=== PATIENT | male | born 1955 | race Caucasian/White ===

== ENCOUNTER → 2016-12-29 | Outpatient (CLI) | payer OTHER ==
[~2016-12-29] VITALS: Ht 175.3 cm; Wt 112.2 kg
[~2016-12-29] MED LIST: ALLO300T2 PO; ASPI-232 PO; ATOR80TA PO; CARV6.252 PO; FERR1TAB13 PO; FRS/40 PO; FURO-85 PO; LISI-729 PO; MELO7.5T5 PO; MULT-506 PO; NVLG INJ; OMEG10007 PO; OMEP20TA PO
[2016-12-29 10:10] VITALS: Ht 175.3 cm; Wt 112.2 kg
--- NOTE | 2016-12-29 10:51 | PAT Medication Instructions ---
Service Date Dec 29, 2016. Current Home Medication List Allopurinol (Zyloprim), 300 MG PO QAM Aspirin (Aspir-81), 1 TAB PO QAM Atorvastatin Calcium (Lipitor), 80 MG PO HS Carvedilol (Coreg), 6.25 MG PO QAM Ferrous Sulfate (Kp Ferrous Sulfate), 0.5 TAB PO QAM Fish Oil ([place]-3), 1 CAP PO BID Furosemide (Lasix), 40 MG PO QAM Furosemide (Lasix), 20 MG PO QDL Insulin Aspart (Novolog), 35 UNITS INJ QAM Insulin Aspart (Novolog), 10 UNITS INJ LUNCH Insulin Aspart (Novolog), 10 UNITS INJ DINNER Lisinopril (Prinivil), 5 MG PO QAM Meloxicam (Mobic), 15 MG PO QAM Multivitamin (Multivitamin), 1 TAB PO QAM Omeprazole (Omeprazole), 1 TAB PO QAM Medication Instructions For Your Scheduled Surgery - Hold the following medications 2 weeks prior to surgery: Fish Oil ([place]-3), 1 CAP PO BID - Hold the following medications the morning of surgery: Lisinopril (Prinivil), 5 MG PO QAM Multivitamin (Multivitamin), 1 TAB PO QAM Furosemide (Lasix), 40 MG PO QAM Furosemide (Lasix), 20 MG PO QDL Ferrous Sulfate (Kp Ferrous Sulfate), 0.5 TAB PO QAM Insulin Aspart (Novolog), 35 UNITS INJ QAM Insulin Aspart (Novolog), 10 UNITS INJ LUNCH Meloxicam (Mobic), 15 MG PO QAM (otherwise okay to continue per surgeon) - Take the following medications the morning of surgery with a sip of water OTHERWISE NOTHING TO EAT OR DRINK AFTER MIDNIGHT: Omeprazole (Omeprazole), 1 TAB PO QAM Allopurinol (Zyloprim), 300 MG PO QAM Aspirin (Aspir-81), 1 TAB PO QAM Carvedilol (Coreg), 6.25 MG PO QAM - Take the following medications as scheduled the night before surgery: Atorvastatin Calcium (Lipitor), 80 MG PO HS Insulin Aspart (Novolog), 10 UNITS INJ DINNER If you have any questions please call us at [phone] or [phone] or [phone]
--- NOTE | 2016-12-29 11:19 | DIAGNOSTIC IMAGING REPORT ---
CHEST PREADMISSION(PA/LAT) CLINICAL HISTORY: Preoperative evaluation. COMPARISON STUDY: No previous studies for comparison. FINDINGS: The lung volumes are normal. No pneumothorax or pleural effusion is present. There is no radiographic evidence of pulmonary edema. A dual lead left subclavian pacer/AICD is in place. Moderate cardiomegaly is noted. Mediastinal contours are otherwise normal. No consolidation is identified. IMPRESSION: 1. No acute cardiopulmonary findings. 2. Moderate cardiomegaly. Electronically signed by: Jorge Valero M.D. 12/29/2016 11:17 AM Dictated Date/Time: 12/29/2016 11:15 AM
[2016-12-29 11:58] LABS: BASO % 0.2 %; BASO ABS # 0.02 K/uL (0-0.2); COMPLETE YES; EOS % 3.1 %; HEMATOCRIT 42.3 % (42-52); IG% 0.5 %; LYMPH % 18.6 %; LYMPH ABS # 1.57 K/uL (1.2-3.4); MEAN CORPUSCULAR HEMOGLOBIN 32.1 pg (25-34); MEAN CORPUSCULAR HGB CONC 34.5 g/dl (32-36); MEAN PLATELET VOLUME 11.6 fL (7.4-10.4); MONO % 9.5 %; NEUT % 68.1 %; PLATELET COUNT 127 K/uL (130-400); RED BLOOD COUNT 4.55 M/uL (4.7-6.1); WHITE BLOOD COUNT 8.44 K/uL (4.8-10.8)
[2016-12-29 12:00] LABS: URINE APPEARANCE CLEAR (CLEAR); URINE BILIRUBIN NEG (NEG); URINE COLOR YELLOW; URINE NITRITE NEG (NEG); URINE PH 5.5 (4.5-7.5); URINE SPECIFIC GRAVITY 1.011 (1.000-1.030); UROBILINOGEN NEG (NEG); ZZUR CULT IF INDIC CLEAN CATCH NO
[2016-12-29 12:05] LABS: ESTIMATED AVERAGE GLUCOSE 209 mg/dl; HA1C FLAG Normal (Normal)
[2016-12-29 12:11] LABS: MANUAL MICROSCOPIC REQUIRED? NO; REVIEW REQ? NO
[2016-12-29 12:15] LABS: INR 1.1 (0.9-1.1); PARTIAL THROMBOPLASTIN RATIO 2.2
[2016-12-29 12:36] LABS: BUN/CREATININE RATIO 18.6 (10-20); CALCIUM 9.2 mg/dl (8.5-10.1); CREATININE 1.7 mg/dl (0.60-1.40); POTASSIUM 5.4 mmol/L (3.5-5.1)
== END ==
LOC: C.LAB 08:00 → EDSTATUS 01-18 13:16
DX: Z01.812 Encounter for preprocedural laboratory examination (principal); M16.12 Unilateral primary osteoarthritis, left hip

== ENCOUNTER → 2017-05-28 | Outpatient (CLI) | payer OTHER ==
[~2017-05-28] MED LIST changes: +ASPI1TAB4 PO; +INSDGI SC; +MELO15TA4 PO; -MELO7.5T5 PO; +OXGN
[2017-05-28 12:32] LABS: BASO % 0.3 %; BASO ABS # 0.03 K/uL (0-0.2); EOS % 3.1 %; EOS ABS # 0.28 K/uL (0-0.5); HEMATOCRIT 40.6 % (42-52); HEMOGLOBIN 14.4 g/dL (14.0-18.0); IG# 0.03 K/uL (0.00-0.02); LYMPH % 18.7 %; MEAN CELL VOLUME 92.9 fL (80-100); MEAN CORPUSCULAR HGB CONC 35.5 g/dl (32-36); MEAN PLATELET VOLUME 11.4 fL (7.4-10.4); MONO % 9.6 %; MONO ABS # 0.87 K/uL (0.11-0.59); NEUT ABS # 6.18 K/uL (1.4-6.5); PLATELET COUNT 116 K/uL (130-400); RED CELL DISTRIBUTION WIDTH CV 13.6 % (11.5-14.5); RED CELL DISTRIBUTION WIDTH SD 46.2 fL (36.4-46.3); WHITE BLOOD COUNT 9.09 K/uL (4.8-10.8)
[2017-05-28 12:51] LABS: INR 1.2 (0.9-1.1)
[2017-05-28 12:59] LABS: HEMOGLOBIN A1C 8.3 % (4.5-5.6)
[2017-05-28 13:22] LABS: ALBUMIN 3.8 gm/dl (3.4-5.0); BLOOD UREA NITROGEN 32 mg/dl (7-18); CALCIUM 8.9 mg/dl (8.5-10.1); CARBON DIOXIDE 22 mmol/L (21-32); CREATININE 1.63 mg/dl (0.60-1.40); GLUCOSE 166 mg/dl (70-99); POTASSIUM 4.1 mmol/L (3.5-5.1); SODIUM 138 mmol/L (136-145)
== END ==
LOC: C.LABMFLN 08:31
PROVIDERS: ATTEND Physician Assistant Medical
DX: Z01.812 Encounter for preprocedural laboratory examination (principal)

== ENCOUNTER → 2017-06-07 | Outpatient (CLI) | payer OTHER ==
[~2017-06-07] MED LIST changes: +MELO-84 PO; -MELO15TA4 PO
[2017-06-07 12:43] LABS: INR 1.2 (0.9-1.1)
[2017-06-07 12:50] LABS: PTT PATIENT 59.9 SECONDS (21.0-31.0)
== END | disposition home or self-care (01) ==
LOC: C.LABMFLN 12:04
DX: M16.12 Unilateral primary osteoarthritis, left hip (principal)

== ENCOUNTER 2017-06-21 05:42 | Inpatient (IN) | payer OTHER ==
[2017-05-17 08:01] VITALS: BMI 35.0
--- NOTE | 2017-06-15 09:13 | PAT Medication Instructions ---
Service Date Jun 15, 2017. Current Home Medication List Allopurinol (Zyloprim), 300 MG PO QAM Aspirin (Aspir-81), 81 MG PO QAM Aspirin-Caffeine (Samuel Back & Body Pain Ex), 2 TAB PO DAILY PRN for Pain Atorvastatin (Lipitor), 80 MG PO HS Carvedilol (Coreg), 6.25 MG PO QAM Ferrous Sulfate (Kp Ferrous Sulfate), 0.5 TAB PO QAM Fish Oil ([place]-3), 2 CAP PO BID Furosemide (Lasix), 40 MG PO QAM Furosemide (Lasix), 20 MG PO QDL Home O2 Therapy (Oxygen), 2 LITERS NA PRN PRN for Shortness of Breath Insulin Aspart (Novolog), 30 UNITS INJ QAM Insulin Aspart (Novolog), 10 UNITS INJ LUNCH Insulin Aspart (Novolog), 10 UNITS INJ DINNER Insulin Glargine (Lantus), 35 UNITS SC BID Lisinopril (Prinivil), 2.5 MG PO QAM Meloxicam (Mobic), 15 MG PO QPM Multivitamin (Multivitamin), 1 TAB PO QAM Omeprazole (Omeprazole), 40 MG PO QAM Medication Instructions For Your Scheduled Surgery -Continue as directed: Home O2 Therapy (Oxygen), 2 LITERS NA PRN PRN for Shortness of Breath -Contact your surgeon for instructions for: Meloxicam (Mobic), 15 MG PO QPM Aspirin-Caffeine (Samuel Back & Body Pain Ex), 2 TAB PO DAILY PRN for Pain - Hold the following medications 2 weeks prior to surgery: Fish Oil ([place]-3), 2 CAP PO BID - Hold the following medications the morning of surgery: Ferrous Sulfate (Kp Ferrous Sulfate), 0.5 TAB PO QAM Furosemide (Lasix), 40 MG PO QAM Insulin Aspart (Novolog), 30 UNITS INJ QAM Lisinopril (Prinivil), 2.5 MG PO QAM Multivitamin (Multivitamin), 1 TAB PO QAM - Take the following medications the morning of surgery with a sip of water: Allopurinol (Zyloprim), 300 MG PO QAM Aspirin (Aspir-81), 81 MG PO QAM Carvedilol (Coreg), 6.25 MG PO QAM Omeprazole (Omeprazole), 40 MG PO QAM - Take the following medications as scheduled the night before surgery: Atorvastatin (Lipitor), 80 MG PO HS Furosemide (Lasix), 20 MG PO QDL Insulin Aspart (Novolog), 10 UNITS INJ LUNCH Insulin Aspart (Novolog), 10 UNITS INJ DINNER Insulin Glargine (Lantus), 35 UNITS SC BID - For Insulin Dependent Diabetic patients: Test blood sugar A.M. of surgery. - If BLOOD SUGAR IS GREATER THAN 150, take half of your regular dose of: Insulin Glargine (Lantus), 35 UNITS SC BID (TAKE 17 UNITS) - If BLOOD SUGAR IS LESS THAN 150, do not take any: Insulin Glargine ( Lantus), 35 UNITS SC BID If you have any questions please call us at [phone] or [phone] or [phone]
[2017-06-15 10:38] LABS: BASO % 0.3 %; BASO ABS # 0.02 K/uL (0-0.2); EOS % 3.3 %; EOS ABS # 0.26 K/uL (0-0.5); HEMATOCRIT 40.2 % (42-52); IG# 0.03 K/uL (0.00-0.02); LYMPH ABS # 1.71 K/uL (1.2-3.4); MEAN CELL VOLUME 92.6 fL (80-100); MEAN CORPUSCULAR HEMOGLOBIN 32.3 pg (25-34); MEAN CORPUSCULAR HGB CONC 34.8 g/dl (32-36); MEAN PLATELET VOLUME 11.5 fL (7.4-10.4); MONO % 9.4 %; MONO ABS # 0.73 K/uL (0.11-0.59); NEUT % 64.6 %; NEUT ABS # 5.03 K/uL (1.4-6.5); PLATELET COUNT 116 K/uL (130-400); RED CELL DISTRIBUTION WIDTH CV 13.5 % (11.5-14.5); RED CELL DISTRIBUTION WIDTH SD 45.8 fL (36.4-46.3); WHITE BLOOD COUNT 7.78 K/uL (4.8-10.8)
[2017-06-15 10:44] LABS: ALBUMIN 3.6 gm/dl (3.4-5.0); CREATININE 1.58 mg/dl (0.60-1.40); POTASSIUM 4.4 mmol/L (3.5-5.1)
[2017-06-15 11:02] LABS: INR 1.2 (0.9-1.1)
[2017-06-15 11:08] LABS: PTT PATIENT 57.4 SECONDS (21.0-31.0)
--- NOTE | 2017-06-20 09:13 | HISTORY & PHYSICAL EXAMINATION ---
DATE OF ADMISSION: 06/21/2017 CHIEF COMPLAINT: Left hip pain. HISTORY OF PRESENT ILLNESS: The patient is a 61-year-old gentleman with known severe osteoarthritis about his left hip. He takes meloxicam daily with minimal relief. He has significant pain and disability with activities of daily living. He has pain with prolonged weightbearing and standing activities. He has difficulty with any kneeling, bending, or squatting activities. Due to ongoing pain and disability, he now desires to proceed with left total hip arthroplasty. PAST MEDICAL HISTORY: Coronary artery disease status post MO x2, cardiac dysrhythmia, type 1 diabetes, esophageal reflux, hypertension, hyperlipidemia, and obesity. PAST SURGICAL HISTORY: None. MEDICATIONS: Allopurinol 100 mg daily, aspirin 81 mg daily, Lipitor 80 mg at bedtime, carvedilol 6.25 mg twice daily, ferrous sulfate 325 mg daily, Lasix 40 mg daily, NovoLog insulin 70/30 as directed, lisinopril 2.5 mg daily, meloxicam 15 mg daily, multivitamin daily, omega-3 fatty acid 1000 mg twice daily, and Prilosec 40 mg daily. ALLERGIES: ACTOS. SOCIAL HISTORY AND REVIEW OF SYSTEMS: Noncontributory. PHYSICAL EXAMINATION: GENERAL: Well-nourished and well-developed male who appears his stated age. HEENT: Normocephalic and atraumatic. Extraocular movements intact. Oropharynx is pink and moist. NECK: Supple without adenopathy. LUNGS: Clear to auscultation bilaterally. HEART: Regular rate and rhythm. ABDOMEN: Soft, nontender, nondistended, and obese. EXTREMITIES: The upper extremities are within normal limits. The left hip demonstrates limited range of motion. There is limitation of active and passive internal/external rotation with pain at end range. X-RAYS: X-rays were reviewed. He has severe end-stage osteoarthritis about the left hip with complete loss of the joint space. There are large osteophytes about the acetabulum and femoral head. There is evidence of subchondral sclerosis and cystic changes in the femoral head. ASSESSMENT: Left hip degenerative joint disease. PLAN: Risks versus benefits were discussed. Consent was obtained. We will proceed with left total hip arthroplasty as indicated.
[~2017-06-21] VITALS: Ht 175.3 cm; Wt 110.0 kg
[2017-06-21] VITALS (12 sets, daily range): BP systolic 108–155; BP diastolic 65–95; PULSE 60–93; TEMP 36.3–37.1; O2SAT 88–97; BMI 35.0
[~2017-06-21 05:42] MED LIST changes: +MISSING PHYSICIAN SIGNATURE ON ORDER SCH
[2017-06-21] MEDS ORDERED: CEFAZOLIN 2000MG IV PUSH 15 ML IV SCH (06:00)
[2017-06-21] MEDS ORDERED: LACTATED RINGER'S 1000ML 500 ML IV SCH (06:00)
[2017-06-21] MEDS ORDERED: CeleBREX 200 MG CAP PO SCH ×2 (06:00)
[2017-06-21] MEDS ORDERED: FAMOTIDINE 20 MG TAB PO SCH ×2 (06:00)
[2017-06-21] MEDS ORDERED: LACTATED RINGER'S 1000ML 1,000 ML IV SCH (06:00)
[2017-06-21] MEDS ORDERED: GABAPENTIN 600 MG PO SCH ×2 (06:00)
[2017-06-21] MEDS ORDERED: METOCLOPRAMIDE HCL 10 MG TAB PO SCH ×2 (06:00)
[2017-06-21] MEDS ORDERED: DEXAMETHASONE 4 MG TAB PO SCH ×2 (06:00)
[2017-06-21] MEDS ORDERED: OXYCODONE HCL 10 MG TABCR (OXYCONTIN) PO SCH ×2 (06:00)
[2017-06-21] MEDS ORDERED: TRANEXAMIC ACID INJ 1,000 MG x 2 Bags IV SCH ×2 (06:00)
[2017-06-21] MEDS ORDERED: ROPIVACAINE 5MG/ML 30 ML 150 MG, BUPIVACAINE 0.5% MPF INJ 30 ML, EpINEphrine HCL INJ 0.... INFIL SCH ×16 (06:00)
[2017-06-21] MEDS ORDERED: ACETAMINOPHEN 500 MG TAB PO SCH ×2 (06:00)
[2017-06-21] MEDS ORDERED: BUPIVACAINE 0.5 % 5 MG/1 ML PF 10ML VIAL ONE (06:22)
[2017-06-21] MEDS: TRANEXAMIC ACID INJ 1,000 MG x 2 Bags IV SCH ×4 (06:30→08:03)
[2017-06-21] MEDS ORDERED: MIDAZOLAM HCL 1 MG/ML 2ML VIAL ONE ×2 (07:49)
--- NOTE | 2017-06-21 07:54 | History & Physical Bridge Note ---
H&P Re-Evaluation Bridge Note: I have examined the patient, reviewed the History & Physical and in the interval since the performance of the History & Physical I have noted the following changes of clinical significance: No changes noted
[2017-06-21] MEDS ORDERED: ORTHO JOINT ANESTHETIC ONE (07:55)
[2017-06-21] MEDS ORDERED: BACITRACIN 50000 UNIT VIAL ONE (07:55)
[2017-06-21] MEDS ORDERED: POVIDONE-IODINE OP SOLN 30 ML BTL ONE (07:55)
[2017-06-21] MEDS ORDERED: KETAMINE HCL INJ 50 MG/ML 10 ML VIAL ONE (08:34)
[2017-06-21] MEDS ORDERED: HYDROmorphone INJ 2 MG/ML SYR/VIAL IV PRN (08:45)
[2017-06-21] MEDS ORDERED: ONDANSETRON INJ 2 MG/ML 2 ML VIAL IV PRN (08:45)
[2017-06-21] MEDS ORDERED: PHENYLEPHRINE 100MCG/ML 5ML SYR IV PRN (08:45)
[2017-06-21] MEDS ORDERED: EpHEDrine SULFATE INJ 50 MG/ML AMP IV PRN (08:45)
[2017-06-21] MEDS ORDERED: ATROPINE SULFATE 0.1 MG/ML 5ML SYR IV PRN (08:45)
[2017-06-21] MEDS ORDERED: PROPOFOL IV EMULSION 10 MG/ML 20 ML VIAL IV ONE (09:20)
--- NOTE | 2017-06-21 09:36 | [facility] Post Operative Brief Note ---
Immediate Operative Summary Operative Date Jun 21, 2017. Pre-Operative Diagnosis DEGENERATIVE JOINT DISEASE Post-Operative Diagnosis SAME PREOP Procedure(s) Performed LEFT TOTAL HIP ARTHROPLASTY Surgeon DR. Lesly LINO Equine Internship Surgeon(s) Kg GOMES Estimated Blood Loss 200ml Findings Consistent with Post-Op Diagnosis Specimens LEFT HIP BONE AND TISSUE Anesthesia Type MAC Spinal Regional Complication(s) very dificult dislocation Disposition Disposition: Recovery Room / PACU
[2017-06-21] MEDS ORDERED: TAMSULOSIN HCL 0.4 MG CAP PO PRN (10:15)
[2017-06-21] MEDS ORDERED: CEFAZOLIN IV 2,000 MG in DEXTROSE 5% 50ML 50 ML IV SCH (10:15)
[2017-06-21] MEDS ORDERED: MAGNESIUM HYDROXIDE SUSP 30 ML UDC PO PRN (10:15)
[2017-06-21] MEDS ORDERED: MoRPHine SULFATE 2 MG/ML CARP IV PRN ×2 (10:15→11:30)
[2017-06-21] MEDS ORDERED: ALUMINUM/MAGNESIUM/SIMETH (MAALOX MAX) 30 ML UDC PO PRN (10:15)
[2017-06-21] MEDS ORDERED: ZOLPIDEM TARTRATE 5 MG TAB PO PRN (10:15)
[2017-06-21] MEDS ORDERED: METOCLOPRAMIDE HCL INJ 5 MG/ML 2 ML VIAL IV PRN (10:15)
--- NOTE | 2017-06-21 10:25 | Anesthesiology Progress Note ---
Anesthesia Post Op Note Date & Time Jun 21, 2017 at 10:24 Vital Signs Pain Intensity: 0 Vital Signs Past 12 Hours Date Time Temp Pulse Resp B/P (MAP) Pulse Ox O2 Delivery O2 Flow Rate FiO2 06/21/17 10:20 60 16 107/68 100 Nasal Cannula 2 06/21/17 10:10 60 16 119/66 100 Oxymask 10 06/21/17 10:00 37.1 60 16 97/62 96 Oxymask 10 06/21/17 07:17 36.8 67 20 155/95 94 Room Air Notes Mental Status: alert / awake / arousable, participated in evaluation Pt Amnestic to Procedure: Yes Nausea / Vomiting: adequately controlled Pain: adequately controlled Airway Patency, RR, SpO2: stable & adequate BP & HR: stable & adequate Hydration State: stable & adequate Anesthetic Complications: no major complications apparent
--- NOTE | 2017-06-21 10:47 | OPERATIVE REPORT ---
DATE OF OPERATION: 06/21/2017 PREOPERATIVE DIAGNOSIS: Osteoarthritis, left hip. POSTOPERATIVE DIAGNOSIS: Osteoarthritis, left hip. PROCEDURE: Left Fromberg total hip arthroplasty. SURGEON: Dr. Dobbs. ANTHROPOLOGIST: Jairo Baltazar PA-C. ANESTHESIA: Spinal. COMPLICATIONS: None. IMPLANTS USED: Left acetabular reamer used 54, acetabular shell 54, femoral stem 5, and femoral head -5 x 36 ceramic. OPERATION AND FINDINGS: PROCEDURE: Following induction of adequate spinal anesthesia, the patient was placed in right lateral decubitus position and left Leah-Langenbeck incision was made. Subcutaneous tissue was sharply dissected. Electrocautery used for hemostasis. The fascia was incised throughout the length of the wound and a camacho scissor placed beneath the short external rotators. The pyriformis was tagged with #1 Vicryl. The short external rotators were divided from the posterior aspect of the femur using electrocautery. These were swept posteriorly. A T-capsulotomy incision was made and the hip was dislocated using a combination of flexion, adduction, and internal rotation. Exposure of the femoral neck with old-style Hohmann and a blunt Hohmann was carried out and a femoral rasp was utilized as a guide for making the appropriate level femoral neck cut. This bone fragment was removed and reserved on the back table. Next, attention was turned to the acetabulum where bone hook was used to retract the femur while the offset retractors were placed anterior and posteriorly. A double-angled Hohmann was placed in superior and anterior position exposing the acetabulum nicely. Acetabular labrum as well as posterior capsule elements were removed using a long knife and a long pickup. Fovea centralis was cleared of all soft tissue. Sequential reamings were carried up to a 54 and decision was made to proceed with impaction of a 54 trabecular metal cup. This was impacted and held using a single 35 mm bone screw. The acetabular liner was placed with 15 of elevated posterior wall in the superior and posterior position. Next, attention was turned to the femoral portion of the case where a Bovie and pickup was used to further clear short external rotators from their insertion on the femur. Box osteotome was used to gain access to the femoral canal and the T-handled rasp and a rattail rasp were used to further open and lateral the canal. Sequentially raspings were carried up to a 5, which gave good fit and fill of the proximal femur. A trial reduction was carried out and a 132 degree femoral neck component was chosen as the size to be used. A -5 x 36 mm femoral head was impacted into position, +0 head was utilized. The trial reduction was stable in all degrees of rotation with no [id number] impingement. The hip was dislocated. The trial components were removed and the final femoral stem, neck, and femoral head combination were assembled on the back table and impacted into position. Hip was relocated. Range of motion checked once again successful and the wound was irrigated. The pyriformis repaired to the greater trochanter using #1 Vicryl [id number] suture. A Hemovac drain was placed and the fascia was closed using #1 Vicryl, subcutaneous tissue was closed using 0 Dexon, and skin was closed with domonique. Sterile dressing of Adaptic, 4 x 4's, ABDs, and foam tape was applied. The patient tolerated the procedure well. Due to the complex nature of the procedure, the entire surgery was performed with the operational assistance of Jairo Baltazar PA-C. The ophthalmology assistant, under direct supervision, was involved in the actual performance of all aspects of the surgical procedure including hemostasis, tissue retraction and incision, instrument management, patient positioning, and wound closure. DISPOSITION: Recovery room, stable. I attest to the content of the Intraoperative Record and any orders documented therein. Any exception s are noted below.
[2017-06-21] MEDS ORDERED: MoRPHine SULFATE 10 MG/ML CARP/VIAL IV PRN (11:30)
[2017-06-21] MEDS ORDERED: MoRPHine SULFATE 4 MG/ML 1 ML CARP\\VIAL IV PRN (11:30)
--- NOTE | 2017-06-21 11:31 | DIAGNOSTIC IMAGING REPORT ---
L PELVIS/UNILATERAL HIP 1 VIEW HISTORY: 61 years-old Male IN PACU - A/P PELVIS and LATERAL HIP INCLUDING ALL OF IMPLANT status post placement of a left hip arthroplasty COMPARISON: None available TECHNIQUE: AP view the pelvis with crosstable lateral view of the left hip FINDINGS: No pelvic ring fracture identified. Mild degenerative changes about the right hip. Peripheral vascular disease. Probable phleboliths of the pelvis. Postoperative changes from recent left hip arthroplasty noted with satisfactory alignment of the hardware. No periprosthetic fracture or retained foreign body. Expected postsurgical swelling and deep tissue air about the left hip and proximal left femur with surgical drain in place. IMPRESSION: Left hip arthroplasty without complication identified. The above report was generated using voice recognition software. It may contain grammatical, syntax or spelling errors. Electronically signed by: Kermit Maharaj M.D. 06/21/2017 11:29 AM Dictated Date/Time: 06/21/2017 11:28 AM
--- NOTE | 2017-06-21 11:56 | Medical Consult ---
Consultation Date of Consultation: Jun 21, 2017. Attending Physician: Ángel Dobbs M.D. Reason for Consultation: Medical management . History of Present Illness 61-year-old male followed by Dr. Humphrey at the [facility]. History of coronary artery disease, hypertension, diabetes mellitus type 2, and other problems noted below. Had preoperative pharmacologic nuclear stress test at [facility] performed 01/25/17 demonstrated perfusion defect at rest consistent with scar, no stress-induced ischemia, overall LVEF of 30%. Underwent left hip surgery earlier today with Dr. Dobbs. Doing well postoperatively. No chest pain. No cough or dyspnea. No nausea or vomiting. Postop pain well-controlled. Took 1/2 of his usual dose of Lantus this morning. Postoperative blood sugar 206. . Past Medical/Surgical History Chronic and Resolved Medical Problems: (1) Coronary artery disease Status: Chronic (2) Diabetes mellitus, type 2 Status: Chronic (3) Exertional dyspnea Permanent Comment: chronic JOHNSON; home O2 PRN with exertion Status: Chronic (4) Gout Status: Chronic (5) Hypertension Status: Chronic Surgical Problems: (1) History of placement of internal cardiac defibrillator Status: Chronic (2) Status post coronary artery stent placement Status: Chronic . Family History Sister-diabetes mellitus Brother-heart disease . Social History Smoking Status: Former Smoker Alcohol Use: none Allergies Coded Allergies: Pioglitazone (Verified Allergy, Unknown, SEVERE HEADACHES, 06/21/17) Home Medications Reported Home Medications Medications Dose Route/Sig Max Daily Dose Days Date Category Oxygen Gas 2 Liters NA PRN PRN 05/17/17 Reported Lantus (Insulin Glargine) 100 Unit/Ml Inj 35 Units SC BID 05/17/17 Reported Samuel Back & Body Pain Ex (Aspirin-Caffeine) 1 Tab Tab 2 Tab PO DAILY PRN 05/17/17 Reported Mobic (Meloxicam) 15 Mg Tab 15 Mg PO QPM 05/17/17 Reported Multivitamin (Multivitamins) Tab 1 Tab PO QAM 12/29/16 Reported Aspir-81 (Aspirin) 81 Mg Tab 81 Mg PO QAM 12/29/16 Reported Omeprazole 20 Mg Tab 40 Mg PO QAM 12/29/16 Reported Prinivil (Lisinopril) 5 Mg Tab 2.5 Mg PO QAM 12/29/16 Reported Novolog (Insulin Aspart) 100 Units/Ml Inj 10 Units INJ DINNER 12/29/16 Reported Novolog (Insulin Aspart) 100 Units/Ml Inj 10 Units INJ LUNCH 12/29/16 Reported Novolog (Insulin Aspart) 100 Units/Ml Inj 30 Units INJ QAM 12/29/16 Reported Lasix (Furosemide) 20 Mg Tab 20 Mg PO QDL 12/29/16 Reported Lasix (Furosemide) 40 Mg Tab 40 Mg PO QAM 12/29/16 Reported [place]-3 (Fish Oil) 1 Ea Cap 2 Cap PO BID 12/29/16 Reported Kp Ferrous Sulfate (Ferrous Sulfate) 325 Mg Tab 0.5 Tab PO QAM 12/29/16 Reported Coreg (Carvedilol) 6.25 Mg Tab 6.25 Mg PO QAM 12/29/16 Reported Lipitor (Atorvastatin) 80 Mg Tab 80 Mg PO HS 12/29/16 Reported Zyloprim (Allopurinol) 300 Mg Tab 300 Mg PO QAM 12/29/16 Reported Current Inpatient Medications Current Inpatient Medications Medications (Trade) Dose Ordered Sig/Deuce Route Start Time Stop Time Status Last Admin Dose Admin Cefazolin Sodium 15 ml @ 3.75 mls/ min PREOP IV 06/21/17 06:00 06/21/17 18:00 Acetaminophen (Tylenol Tab) 1,000 mg PREOP PO 06/21/17 06:00 06/21/17 18:00 06/21/17 07:31 1,000 MG Celecoxib (CeleBREX CAP) 200 mg PREOP PO 06/21/17 06:00 06/21/17 18:00 06/21/17 07:29 200 MG Dexamethasone (Decadron Tab) 8 mg PREOP PO 06/21/17 06:00 06/21/17 18:00 06/21/17 07:29 8 MG Famotidine (Pepcid Tab) 20 mg PREOP PO 06/21/17 06:00 06/21/17 18:00 06/21/17 07:30 20 MG Gabapentin (Neurontin Cap) 600 mg PREOP PO 06/21/17 06:00 06/21/17 18:00 06/21/17 07:29 600 MG Metoclopramide HCl (Reglan Tab) 10 mg PREOP PO 06/21/17 06:00 06/21/17 18:00 06/21/17 07:30 10 MG Oxycodone HCl (Oxycontin Tab) 10 mg PREOP PO 06/21/17 06:00 06/21/17 18:00 06/21/17 07:30 10 MG Hydromorphone HCl (Dilaudid Inj) 0.5 mg Q5M PRN IV 06/21/17 08:45 06/21/17 13:45 Ondansetron HCl (Zofran Inj) 4 mg ONE PRN IV 06/21/17 08:45 06/21/17 13:45 Ephedrine Sulfate (EpHEDrine SULFATE INJ) 5 mg Q5M PRN IV 06/21/17 08:45 06/21/17 13:45 Atropine Sulfate (Atropine Sulfate 0.1mg/ml Inj) 0.5 mg Q1M PRN IV 06/21/17 08:45 06/21/17 13:45 Phenylephrine HCl (Juan Pablo-Synephrine 500MCG/5ML Syr) 100 mcg Q5M PRN IV 06/21/17 08:45 06/21/17 13:45 Sodium Chloride 1,000 ml @ 100 mls/hr Q10H IV 06/21/17 11:30 06/22/17 10:06 Ketorolac Tromethamine (Toradol Inj) 30 mg Q6 IV. 06/21/17 12:00 06/22/17 11:59 Oxycodone HCl (Roxicodone Immediate Rel Tab) 1 TABLET FOR PAIN RATING... Q4H PRN PO 06/21/17 10:15 07/05/17 10:14 Acetaminophen (Tylenol Tab) 1,000 mg Q8 PO 06/21/17 14:00 07/21/17 13:59 Magnesium Hydroxide (Milk Of Magnesia Susp) 30 ml Q6H PRN PO 06/21/17 10:15 07/21/17 10:14 Docusate Sodium (coLACE CAP) 100 mg BID PO 06/21/17 21:00 07/21/17 20:59 Diphenhydramine HCl (Benadryl Cap) 25 mg Q8H PRN PO 06/21/17 10:15 07/21/17 10:14 Al Hydrox/Mg Hydrox/Simethicone (Maalox Max Susp) 15 ml Q4H PRN PO 06/21/17 10:15 07/21/17 10:14 Zolpidem Tartrate (Ambien Tab) 5 mg HSZ PRN PO 06/21/17 10:15 07/21/17 10:14 Multivitamins (Multivitamin Tab) 1 tab QAM PO 06/22/17 09:00 07/22/17 08:59 Ondansetron HCl (Zofran Inj) 4 mg Q6H PRN IV 06/21/17 10:15 07/21/17 10:14 Metoclopramide HCl (Reglan Inj) 10 mg Q6H PRN IV 06/21/17 10:15 07/21/17 10:14 Ferrous Gluconate (Ferrous Gluconate Tab) 324 mg TIDM PO 06/21/17 12:30 07/21/17 12:29 Pantoprazole Sodium (Protonix Tab) 40 mg QAM PO 06/22/17 09:00 06/26/17 08:59 Tamsulosin HCl (Flomax Cap) 0.4 mg QAM PRN PO 06/21/17 10:15 07/21/17 10:14 Dexamethasone Sodium Phosphate 10 mg/Syringe 2.5 ml @ 1 mls/min TODAY@0730 IV 06/22/17 07:30 06/22/17 07:33 Aspirin (Ecotrin Tab) 81 mg BID PO 06/21/17 21:00 07/21/17 20:59 Allopurinol (Zyloprim Tab) 300 mg QAM PO 06/22/17 09:00 07/22/17 08:59 Atorvastatin Calcium (Lipitor Tab) 80 mg HS PO 06/21/17 21:00 07/21/17 20:59 Carvedilol (Coreg Tab) 6.25 mg QAM PO 06/22/17 09:00 07/22/17 08:59 Furosemide (Lasix Tab) 20 mg QDL PO 06/21/17 12:30 07/21/17 12:29 Furosemide (Lasix Tab) 40 mg QAM PO 06/22/17 09:00 07/22/17 08:59 Lisinopril (Zestril Tab) 2.5 mg QAM PO 06/22/17 09:00 07/22/17 08:59 Morphine Sulfate (MoRPHine SULFATE INJ) 2 mg Q2HWA PRN IV 06/21/17 11:30 07/05/17 11:29 Morphine Sulfate (MoRPHine SULFATE INJ) 4 mg Q2HWA PRN IV 06/21/17 11:30 07/05/17 11:29 Morphine Sulfate (MoRPHine SULFATE INJ) 6 mg Q2HWA PRN IV 06/21/17 11:30 07/05/17 11:29 Cefazolin Sodium 2000 mg/Syringe 15 ml @ 3.75 mls/ min Q8H IV 06/21/17 16:00 06/22/17 00:03 Review of Systems Constitutional: No fever, No weight loss Respiratory: + dyspnea on exertion (Chronic), No cough Cardiovascular: No chest pain, No edema Abdomen: No nausea, No vomiting, No diarrhea, No GI bleeding Musculoskeletal: + joint pain (Hip pain) Genitourinary - Male: No hematuria, No dysuria Endocrine: + problem reported (Blood sugars well controlled at home), No excessive thirst, No excessive urination Hematologic / Lymphatic: No abnormal bleeding/bruising Physical Exam Date Time Temp Pulse Resp B/P (MAP) Pulse Ox O2 Delivery O2 Flow Rate FiO2 06/21/17 11:46 60 16 119/76 (90) 96 Nasal Cannula 2.0 06/21/17 11:00 36.8 60 16 109/64 96 Nasal Cannula 2 06/21/17 10:50 36.8 60 16 109/63 96 Nasal Cannula 2 06/21/17 10:40 60 16 106/60 96 Nasal Cannula 2 06/21/17 10:30 66 16 109/63 98 Nasal Cannula 2 06/21/17 10:20 60 16 107/68 100 Nasal Cannula 2 06/21/17 10:10 60 16 119/66 100 Oxymask 10 06/21/17 10:00 37.1 60 16 97/62 96 Oxymask 10 06/21/17 07:17 36.8 67 20 155/95 94 Room Air General Appearance: no apparent distress, + obese Head: normocephalic, atraumatic Eyes: normal inspection, PERRL, EOMI, sclerae normal ENT: normal ENT inspection, hearing grossly normal Neck: thyroid normal, trachea midline Respiratory/Chest: lungs clear, no respiratory distress, no accessory muscle use Cardiovascular: regular rate, rhythm, no edema, no gallop, no JVD, no murmur Abdomen/GI: normal bowel sounds, non tender, soft, no organomegaly, no pulsatile mass Extremities/Musculoskelatal: no calf tenderness, + pertinent finding (TEDS and SCDs applied) Skin: normal color, warm/dry Lymphatic: no adenopathy (Cervical) Laboratory Results Last 24 Hours Test 06/21/17 06:54 06/21/17 10:42 06/21/17 11:41 Bedside Glucose 190 mg/dl 206 mg/dl 237 mg/dl Assessment & Plan STATUS POST LEFT TOTAL HIP ARTHROPLASTY Doing well postoperatively. CORONARY ARTERY DISEASE Status post myocardial infarction several years ago with subsequent coronary stenting. Preoperative nuclear stress test negative. Continue aspirin if okay from surgical perspective. Continue carvedilol and statin. ISCHEMIC CARDIOMYOPATHY Status post myocardial infarction with residual LVEF of 30%. Compensated. Continue carvedilol and lisinopril. Furosemide PRN. HYPERTENSION He was stable postoperatively. Continue carvedilol and lisinopril. DIABETES MELLITUS TYPE 2 Diabetes mellitus type 2 managed with Lantus and NovoLog. Patient took 1/2 dose of his Lantus this morning preoperatively. Blood sugar postoperatively this morning 206. Expect fluctuating blood sugars secondary to surgery, anesthesia, preoperative steroids, immobility, variable p.o. intake. Continue Lantus and NovoLog with adjustment necessary. Check hemoglobin A1c. DVT PROPHYLAXIS Per Orthopedics protocol. Thank you for this consultation. We will follow the patient with you during their hospital stay. Dr. Mendieta will be assuming medical management on Sunday. You can reach a member of the [facility] Medicine Team 13/11 via pager @ [phone]. You can reach me via cell @ [phone]. .
[2017-06-21] MEDS: SODIUM CHLORIDE 0.9% 1000ML 1,000 ML IV SCH ×2 (12:09→21:10)
[2017-06-21] MEDS: KETOROLAC TROMETHAMINE 30 MG/ML VIAL IV. SCH ×3 (12:10→23:37)
[2017-06-21] MEDS ORDERED: FUROSEMIDE 20 MG TAB PO SCH (12:30)
[2017-06-21] MEDS ORDERED: GLUCAGON FOR INJ 1 MG VIAL SQ PRN (13:00)
[2017-06-21] MEDS ORDERED: DEXTROSE 50% 50 ML SYR IV PRN (13:00)
[2017-06-21] MEDS ORDERED: GLUCOSE 40% GEL 15 GM TUBE PO PRN (13:00)
[2017-06-21] MEDS ORDERED: GLUCOSE 10 TABS/TUBE PO PRN (13:00)
[2017-06-21] MEDS: FERROUS GLUCONATE 324 MG TAB PO SCH ×2 (13:14→18:04)
[2017-06-21] MEDS: ACETAMINOPHEN 500 MG TAB PO SCH ×2 (13:15→21:54)
[2017-06-21] MEDS: INSULIN ASPART 100 UNITS/ML 3 ML PEN SC SCH ×3 (13:45→21:07)
[2017-06-21] MEDS: ONDANSETRON INJ 2 MG/ML 2 ML VIAL IV PRN (15:31)
[2017-06-21] MEDS: OXYCODONE HCL IR 5 MG TAB (IMMEDIATE RELEASE) PO PRN (15:32)
[2017-06-21] MEDS: CEFAZOLIN IV 2,000 MG in SYRINGE 0 ML IV SCH ×2 (15:32→23:37)
[2017-06-21] MEDS: ATORVASTATIN 40 MG TAB PO SCH (21:04)
[2017-06-21] MEDS: DOCUSATE SODIUM 100 MG CAP PO SCH (21:05)
[2017-06-21] MEDS: ASPIRIN 81 MG ECTAB PO SCH (21:05)
[2017-06-21] MEDS: INSULIN GLARGINE SOLOSTAR 100 UNITS/ML 3 ML PEN SC SCH (21:08)
[2017-06-22 03:23] VITALS: BP 148/85; PULSE 70; TEMP 36.3; O2SAT 94
[2017-06-22] MEDS: ACETAMINOPHEN 500 MG TAB PO SCH ×3 (05:46→21:41)
[2017-06-22] MEDS: KETOROLAC TROMETHAMINE 30 MG/ML VIAL IV. SCH (05:47)
[2017-06-22 07:00] LABS: HEMATOCRIT 35.6 % (42-52); HEMOGLOBIN 12.2 g/dL (14.0-18.0); MEAN CORPUSCULAR HEMOGLOBIN 31.5 pg (25-34); MEAN CORPUSCULAR HGB CONC 34.3 g/dl (32-36); RED CELL DISTRIBUTION WIDTH CV 13.6 % (11.5-14.5); WHITE BLOOD COUNT 20.46 K/uL (4.8-10.8)
[2017-06-22 07:12] LABS: HEMOGLOBIN A1C 8.3 % (4.5-5.6)
[2017-06-22] MEDS: ONDANSETRON INJ 2 MG/ML 2 ML VIAL IV PRN (07:17)
[2017-06-22] MEDS: SODIUM CHLORIDE 0.9% 1000ML 1,000 ML IV SCH (07:17)
[2017-06-22 07:25] LABS: BASO ABS # 0.01 K/uL (0-0.2); LYMPH % 4.2 %; LYMPH ABS # 0.86 K/uL (1.2-3.4); MEAN PLATELET VOLUME 10.6 fL (7.4-10.4); MONO % 7.9 %; MONO ABS # 1.61 K/uL (0.11-0.59); NEUT % 87.4 %; NEUT ABS # 17.88 K/uL (1.4-6.5); PLATELET COUNT 97 K/uL (130-400)
[2017-06-22 07:28] LABS: CALCIUM 8.4 mg/dl (8.5-10.1); CREATININE 1.88 mg/dl (0.60-1.40)
[2017-06-22] MEDS ORDERED: DEXAMETHASONE INJ 10 MG in SYRINGE 0 ML IV SCH (07:30)
--- NOTE | 2017-06-22 07:40 | Orthopedic Progress Note ---
Orthopedic Progress Note Date of Service Jun 22, 2017. Subjective Post OP Day: 1 Reports: feeling well Objective calves soft nontender, N/V intact, dressing C/D/I (Hemovac in place), toes mobile Date Time Temp Pulse Resp B/P (MAP) Pulse Ox O2 Delivery O2 Flow Rate FiO2 06/22/17 03:23 36.3 70 18 148/85 (106) 94 Nasal Cannula 3.0 06/21/17 23:40 CPAP 4.0 06/21/17 23:35 37.1 60 18 134/79 (97) 97 Room Air 06/21/17 19:28 36.6 66 18 136/81 (99) 97 CPAP 4.0 06/21/17 18:17 97 CPAP 4.0 06/21/17 18:16 88 CPAP 06/21/17 18:15 60 16 129/75 (93) 93 Room Air 06/21/17 15:15 Nasal Cannula 2.0 06/21/17 15:09 36.4 61 18 129/78 (95) 96 Room Air 06/21/17 14:49 36.5 64 19 108/65 (79) 96 Nasal Cannula 2.0 06/21/17 13:01 36.5 62 19 118/73 (88) 95 Nasal Cannula 2.0 06/21/17 12:11 36.3 61 16 119/73 (88) 97 Nasal Cannula 2.0 06/21/17 11:46 60 16 119/76 (90) 96 Nasal Cannula 2.0 06/21/17 11:15 36.7 60 16 115/75 (88) 97 Nasal Cannula 2.0 06/21/17 11:15 Nasal Cannula 2.0 06/21/17 11:15 Nasal Cannula 2.0 06/21/17 11:00 36.8 60 16 109/64 96 Nasal Cannula 2 06/21/17 10:50 36.8 60 16 109/63 96 Nasal Cannula 2 06/21/17 10:40 60 16 106/60 96 Nasal Cannula 2 06/21/17 10:30 66 16 109/63 98 Nasal Cannula 2 06/21/17 10:20 60 16 107/68 100 Nasal Cannula 2 06/21/17 10:10 60 16 119/66 100 Oxymask 10 06/21/17 10:00 37.1 60 16 97/62 96 Oxymask 10 Laboratory Results 24 Hours: Test 06/22/17 06:32 White Blood Count 20.46 K/uL Red Blood Count 3.87 M/uL Hemoglobin 12.2 g/dL Hematocrit 35.6 % Mean Corpuscular Volume 92.0 fL Mean Corpuscular Hemoglobin 31.5 pg Mean Corpuscular Hemoglobin Concent 34.3 g/dl Platelet Count 97 K/uL Mean Platelet Volume 10.6 fL Neutrophils (%) (Auto) 87.4 % Lymphocytes (%) (Auto) 4.2 % Monocytes (%) (Auto) 7.9 % Eosinophils (%) (Auto) 0.0 % Basophils (%) (Auto) 0.0 % Neutrophils # (Auto) 17.88 K/uL Lymphocytes # (Auto) 0.86 K/uL Monocytes # (Auto) 1.61 K/uL Eosinophils # (Auto) 0.00 K/uL Basophils # (Auto) 0.01 K/uL Assessment & Plan Assessment: 61 yo male stable POD #1 s/p left JOSE ALFREDO Plan: 1. Med management 2. DVT prophylaxis- ASA, SCDs 3. PT/OT 4. D/C planning- pt interested in [facility]ust[facility]ox/[facility]
--- NOTE | 2017-06-22 07:43 | Discharge Instructions ---
Discharge Instructions Date of Service Jun 22, 2017. Admission Reason for Admission: Left Hip Osteoarthritis Discharge Discharge Diagnosis / Problem: Left hip arthritis Discharge Goals Goal(s): Decrease discomfort, Improve function Activity Recommendations Activity Limitations: as noted below Weightbearing Status: Left weightbearing (as tolerated) . Instructions / Follow-Up Instructions / Follow-Up ACTIVITY RECOMMENDATIONS: SELF CARE INSTRUCTIONS AFTER TOTAL HIP REPLACEMENT Until the incision and soft tissues around your hip have healed, there is a possibility that the hip prosthesis could dislocate. A. Observe the following precautions to prevent dislocation: 1. Don't bend your hip greater than 90 degrees. 2. Avoid crossing your legs or ankles while standing or lying. 3. Sit with your feet placed 6 inches apart. 4. When sitting, keep your knees below your hips. Sit on a firm surface, avoid deep, soft chairs and couches. Use an elevated toilet seat in the bathroom. 5. Don't bend over at the waist. Use a long handled shoehorn and a sock aid to help you put on your shoes and socks. A streetcar repairer helper can help you pickle sorter objects that are too high or too low to reach. 6. Keep car riding to a minimum for at least one month after surgery. B. Your balance may be shaky for a while. Use crutches or a walker until directed by your doctor. C. Use hand rails when walking on stairs. D. Wear low heeled shoes with non-slip soles. E. Be sure that your floors are free of things that could trip you - throw rugs , electrical cords, small objects. Avoid wet and waxed floors, especially with crutches and canes. F. Try to walk several times a day with rest periods between. G. Continue with all the exercises taught to you in the hospital. Again, make walking a part of your daily routine. SPECIAL CARE INSTRUCTIONS: VERY IMPORTANT TO READ AND REVIEW A. You may still be at risk for phlebitis and blood clots. 1. Wear surgical stockings (EFREM hose) for 2 weeks after surgery to improve circulation and reduce swelling. 2. Take Aspirin 81mg twice daily for 4 weeks or as directed by your doctor. This is your blood thinner. 3. High risk patients may be prescribed a stronger blood thinner if necessary. 4. If you are on Coumadin normally, your family doctor/labor contract analyst should monitor your blood work. Expect a phone call the day of or the day after bloodwork is drawn to adjust your dosage. B. You must take antibiotics before having dental work, bladder, bowel and other surgery. Your doctor will provide you with a permanent card to carry describing precautions. C. Call [facility] if you have a fever, redness or swelling around the incision, cloudy drainage from incision, or sudden increase in pain in your hip, not relieved by your regular pain medication. D. Please call the office at if you have any concerns or questions about your operation or recovery. * YOU MAY SHOWER, NO TUB BATHS UNTIL CLEARED BY YOUR DOCTOR. * WEAR EFREM HOSE 20 HOURS PER DAY FOR 2 WEEKS. * YOU SHOULD USE A WALKER OR CRUTCHES FOR 2-4 WEEKS. THIS WILL HELP PREVENT STRAIN ON YOUR HIP MUSCLE AND ALLOW IT TO HEAL PROPERLY. YOU MAY WEAN TO A CANE TOLERATED. * MOST PATIENTS WILL HAVE HOME NURSING FOR THERAPY. IF YOU DECIDE TO DO OUTPATIENT PHYSICAL THERAPY, PLEASE SCHEDULE THIS 3 TIMES PER WEEK. Silverlon- This is a large adhesive bandage that contains silver ions. This helps your incision heal by fighting off bacteria and protecting it from the outside environment. You are permitted to shower with this dressing. This will remain on your incision for 7 days and then should be removed. Some visible blood or drainage through the dressing window is normal. If there is significant drainage or leaking noted before the 7 days notify your doctor's office immediately. Once removed, keep incision clean and dry. If there is any drainage or redness noted, please call your surgeon. Maintain Zipline closure when removing Silverlon. FOLLOW UP VISIT: If appointment is not already scheduled: Please call [facility] to make a follow-up appointment for 2 weeks after your surgery at . Current Hospital Diet Patient's current hospital diet: Diabetes Type 2 Diet Discharge Diet Recommended Diet: Diabetes Type 2 Diet Procedures Procedures Performed: LEFT TOTAL HIP ARTHROPLASTY Pending Studies Studies pending at discharge: no Laboratory Results Hemoglobin A1c Test 06/22/17 06:32 Range/Units Estimated Average Glucose 192 mg/dl Hemoglobin A1c 8.3 H 4.5-5.6 % Medical Emergencies . Who to Call and When: Medical Emergencies: If at any time you feel your situation is an emergency, please call 911 immediately. . Non-Emergent Contact Non-Emergency issues call your: Surgeon Call Non-Emergent contact if: temperature is above 101.5, your pain is not controlled, wound has increased drainage, wound has increased redness . "Provider Documentation" section prepared by Jairo Baltazar PA-C. . [place] Drug Monitoring Program Search Results: patient reviewed within database, no issues identified
[2017-06-22 07:59] VITALS: BP 124/76; PULSE 60; TEMP 36.2; O2SAT 95
--- NOTE | 2017-06-22 08:22 | Anesthesiology Progress Note ---
Anesthesia Post Op Note Date & Time Jun 22, 2017 at 08:22 Vital Signs Pain Intensity: 0.0 Vital Signs Past 12 Hours Date Time Temp Pulse Resp B/P (MAP) Pulse Ox O2 Delivery O2 Flow Rate FiO2 06/22/17 07:59 36.2 60 18 124/76 (92) 95 Room Air 06/22/17 03:23 36.3 70 18 148/85 (106) 94 Nasal Cannula 3.0 06/21/17 23:40 CPAP 4.0 06/21/17 23:35 37.1 60 18 134/79 (97) 97 Room Air Notes Mental Status: alert / awake / arousable, participated in evaluation Pt Amnestic to Procedure: Yes Nausea / Vomiting: adequately controlled Pain: adequately controlled Airway Patency, RR, SpO2: stable & adequate BP & HR: stable & adequate Hydration State: stable & adequate Neuraxial Anesthesia: sensory block resolved Anesthetic Complications: no major complications apparent
[2017-06-22] MEDS: FERROUS GLUCONATE 324 MG TAB PO SCH ×3 (08:37→18:04)
[2017-06-22] MEDS: DOCUSATE SODIUM 100 MG CAP PO SCH ×2 (08:38→20:11)
[2017-06-22] MEDS: CARVEDILOL 6.25 MG TAB PO SCH (08:38)
[2017-06-22] MEDS: ASPIRIN 81 MG ECTAB PO SCH ×2 (08:39→20:11)
[2017-06-22] MEDS: PANTOprazole SOD 40 MG TAB PO SCH (08:41)
[2017-06-22] MEDS: MULTIVITAMIN TAB PO SCH (08:41)
[2017-06-22] MEDS: ALLOPURINOL 300 MG TAB PO SCH (08:42)
[2017-06-22] MEDS: OXYCODONE HCL IR 5 MG TAB (IMMEDIATE RELEASE) PO PRN (08:47)
[2017-06-22] MEDS ORDERED: FUROSEMIDE 40 MG TAB PO SCH (09:00)
[2017-06-22] MEDS ORDERED: LISINOPRIL 2.5 MG TAB PO SCH (09:00)
[2017-06-22] MEDS: INSULIN ASPART 100 UNITS/ML 3 ML PEN SC SCH ×4 (09:02→21:39)
[2017-06-22] MEDS: INSULIN GLARGINE SOLOSTAR 100 UNITS/ML 3 ML PEN SC SCH ×2 (09:03→21:37)
[2017-06-22 10:31] VITALS: O2SAT 95
[2017-06-22 12:01] VITALS: BP 134/84; PULSE 81; TEMP 36.9; O2SAT 90
[2017-06-22 15:17] VITALS: Ht 175.3 cm; Wt 110.0 kg
[2017-06-22 15:37] VITALS: BP 160/88; PULSE 84; TEMP 36.7; O2SAT 91
[2017-06-22] MEDS ORDERED: HydrALAZINE HCL 20 MG/ML VIAL IV. PRN (18:30)
--- NOTE | 2017-06-22 18:36 | Progress Note ---
Medicine Progress Note Date & Time of Visit: Jun 22, 2017 at 18:23. Subjective Pt was seen and examined Sitting in chair comfortable with no distress Pt said that he feels fine Denies any chest pain, palpitation and SOB Objective Last 8 Hrs Date Time Temp Pulse Resp B/P (MAP) Pulse Ox O2 Delivery O2 Flow Rate FiO2 06/22/17 15:37 36.7 84 18 160/88 (112) 91 Room Air 06/22/17 12:01 36.9 81 18 134/84 (101) 90 Room Air 06/22/17 10:31 95 Room Air Physical Exam: General- No acute distress Head- atraumatic Eyes- PERRL, EOMI ENT- oropharynx clear Neck- supple, no JVD Lungs- clear to auscultation Heart- regular rhythm Abdomen- normal bowel sounds, soft Extremities- no calf tenderness Neuro- alert, oriented x 3; PERRL, EOMI Skin- warm & dry Laboratory Results: Last 24 Hours Test 06/21/17 20:26 06/22/17 06:32 06/22/17 07:47 06/22/17 11:53 Bedside Glucose 248 mg/dl 196 mg/dl 263 mg/dl White Blood Count 20.46 K/uL Red Blood Count 3.87 M/uL Hemoglobin 12.2 g/dL Hematocrit 35.6 % Mean Corpuscular Volume 92.0 fL Mean Corpuscular Hemoglobin 31.5 pg Mean Corpuscular Hemoglobin Concent 34.3 g/dl Platelet Count 97 K/uL Mean Platelet Volume 10.6 fL Neutrophils (%) (Auto) 87.4 % Lymphocytes (%) (Auto) 4.2 % Monocytes (%) (Auto) 7.9 % Eosinophils (%) (Auto) 0.0 % Basophils (%) (Auto) 0.0 % Neutrophils # (Auto) 17.88 K/uL Lymphocytes # (Auto) 0.86 K/uL Monocytes # (Auto) 1.61 K/uL Eosinophils # (Auto) 0.00 K/uL Basophils # (Auto) 0.01 K/uL RDW Standard Deviation 45.0 fL RDW Coefficient of Variation 13.6 % Immature Granulocyte % (Auto) 0.5 % Immature Granulocyte # (Auto) 0.10 K/uL Platelet Estimate DECREASED Sodium Level 134 mmol/L Potassium Level 5.0 mmol/L Chloride Level 103 mmol/L Carbon Dioxide Level 24 mmol/L Anion Gap 7.0 mmol/L Blood Urea Nitrogen 37 mg/dl Creatinine 1.88 mg/dl Est Creatinine Clear Calc Drug Dose 49.2 ml/min Estimated GFR () 43.1 Estimated GFR (Non- 37.2 BUN/Creatinine Ratio 19.9 Random Glucose 208 mg/dl Estimated Average Glucose 192 mg/dl Hemoglobin A1c 8.3 % Calcium Level 8.4 mg/dl Test 06/22/17 17:33 Bedside Glucose 241 mg/dl Assessment & Plan STATUS POST LEFT TOTAL HIP ARTHROPLASTY Day#1 post-op No post-op complication Pain control Incentive spirometry Continue monitor H/H CORONARY ARTERY DISEASE Status post myocardial infarction several years ago with subsequent coronary stenting. Preoperative nuclear stress test negative. Continue carvedilol, aspirin and statin. Asymptomatic ROBERTA on CKD Creatine 1.88 Hold Lisinopril and furosemide Monitor BMP ISCHEMIC CARDIOMYOPATHY Status post myocardial infarction with residual LVEF of 30%. No signs of volume overload Continue carvedilol Hold Furosemide and lisinopril due to elevate creatine HYPERTENSION BP elevated Continue carvedilol Hold lisinopril for now, will resume once creatine improves Starting on hydralazine IV prn DIABETES MELLITUS TYPE 2 Recent Hba1c 8.6 Continue lantus Monitor BS DVT PROPHYLAXIS Per Orthopedics protocol. CODE STATUS FULL CODE Current Inpatient Medications: Current Inpatient Medications Medications (Trade) Dose Ordered Sig/Educe Route Start Time Stop Time Status Last Admin Dose Admin Oxycodone HCl (Roxicodone Immediate Rel Tab) 1 TABLET FOR PAIN RATING... Q4H PRN PO 06/21/17 10:15 07/05/17 10:14 06/22/17 08:47 10 MG Acetaminophen (Tylenol Tab) 1,000 mg Q8 PO 06/21/17 14:00 07/21/17 13:59 06/22/17 13:35 1,000 MG Magnesium Hydroxide (Milk Of Magnesia Susp) 30 ml Q6H PRN PO 06/21/17 10:15 07/21/17 10:14 Docusate Sodium (coLACE CAP) 100 mg BID PO 06/21/17 21:00 07/21/17 20:59 06/22/17 08:38 100 MG Diphenhydramine HCl (Benadryl Cap) 25 mg Q8H PRN PO 3/1/18 10:15 07/21/17 10:14 Al Hydrox/Mg Hydrox/Simethicone (Maalox Max Susp) 15 ml Q4H PRN PO 06/21/17 10:15 07/21/17 10:14 Zolpidem Tartrate (Ambien Tab) 5 mg HSZ PRN PO 06/21/17 10:15 07/21/17 10:14 Multivitamins (Multivitamin Tab) 1 tab QAM PO 06/22/17 09:00 07/22/17 08:59 06/22/17 08:41 1 TAB Ondansetron HCl (Zofran Inj) 4 mg Q6H PRN IV 06/21/17 10:15 07/21/17 10:14 06/22/17 07:17 4 MG Metoclopramide HCl (Reglan Inj) 10 mg Q6H PRN IV 06/21/17 10:15 07/21/17 10:14 06/21/17 18:10 10 MG Ferrous Gluconate (Ferrous Gluconate Tab) 324 mg TIDM PO 06/21/17 12:30 07/21/17 12:29 06/22/17 18:04 324 MG Pantoprazole Sodium (Protonix Tab) 40 mg QAM PO 06/22/17 09:00 06/26/17 08:59 06/22/17 08:41 40 MG Tamsulosin HCl (Flomax Cap) 0.4 mg QAM PRN PO 06/21/17 10:15 07/21/17 10:14 Aspirin (Ecotrin Tab) 81 mg BID PO 06/21/17 21:00 07/21/17 20:59 06/22/17 08:39 81 MG Allopurinol (Zyloprim Tab) 300 mg QAM PO 06/22/17 09:00 07/22/17 08:59 06/22/17 08:42 300 MG Atorvastatin Calcium (Lipitor Tab) 80 mg HS PO 06/21/17 21:00 07/21/17 20:59 06/21/17 21:04 80 MG Carvedilol (Coreg Tab) 6.25 mg QAM PO 06/22/17 09:00 07/22/17 08:59 06/22/17 08:38 6.25 MG Furosemide (Lasix Tab) 20 mg QDL PO 3/1/18 12:30 07/21/17 12:29 Future Hold 06/21/17 13:15 20 MG Furosemide (Lasix Tab) 40 mg QAM PO 06/22/17 09:00 07/22/17 08:59 Future Hold 06/22/17 08:40 40 MG Lisinopril (Zestril Tab) 2.5 mg QAM PO 06/22/17 09:00 07/22/17 08:59 Future Hold 06/22/17 08:42 2.5 MG Morphine Sulfate (MoRPHine SULFATE INJ) 2 mg Q2HWA PRN IV 06/21/17 11:30 07/05/17 11:29 Morphine Sulfate (MoRPHine SULFATE INJ) 4 mg Q2HWA PRN IV 06/21/17 11:30 07/05/17 11:29 Morphine Sulfate (MoRPHine SULFATE INJ) 6 mg Q2HWA PRN IV 06/21/17 11:30 07/05/17 11:29 Insulin Aspart (novoLOG ASPART) SLIDING SCALE G... ACHS SC 06/21/17 12:00 07/21/17 11:59 06/22/17 18:07 15 UNITS Insulin Glargine (Lantus Solostar Pen) BSG Lantus SQ <... BID SC 06/21/17 21:00 07/21/17 20:59 06/22/17 09:03 40 UNITS Glucose (Glucose 40% Gel) 15-30 GRAMS 15 GRAMS... UD PRN PO 06/21/17 13:00 07/21/17 12:59 Glucose (Glucose Chew Tab) 4-8 Tablets 4 Tabl... UD PRN PO 06/21/17 13:00 07/21/17 12:59 Dextrose (Dextrose 50% 50ML Syringe) 25-50ML OF 50% DW IV FOR... UD PRN IV 06/21/17 13:00 07/21/17 12:59 Glucagon (Glucagon Inj) 1 mg UD PRN SQ 06/21/17 13:00 07/21/17 12:59
[2017-06-22] MEDS: ATORVASTATIN 40 MG TAB PO SCH (20:11)
[2017-06-22 23:00] VITALS: BP 125/76; PULSE 69; TEMP 36.7; O2SAT 97
[2017-06-23] MEDS: ACETAMINOPHEN 500 MG TAB PO SCH (06:16)
[2017-06-23 06:33] VITALS: BP 135/82; PULSE 71; TEMP 36.8; O2SAT 94
[2017-06-23] MEDS: CARVEDILOL 6.25 MG TAB PO SCH (07:46)
[2017-06-23] MEDS: PANTOprazole SOD 40 MG TAB PO SCH (07:46)
[2017-06-23] MEDS: ASPIRIN 81 MG ECTAB PO SCH (07:46)
[2017-06-23] MEDS: ALLOPURINOL 300 MG TAB PO SCH (07:46)
[2017-06-23] MEDS: MULTIVITAMIN TAB PO SCH (07:46)
[2017-06-23] MEDS: DOCUSATE SODIUM 100 MG CAP PO SCH (07:46)
[2017-06-23] MEDS: FERROUS GLUCONATE 324 MG TAB PO SCH ×2 (07:46→11:27)
[2017-06-23] MEDS: INSULIN ASPART 100 UNITS/ML 3 ML PEN SC SCH ×2 (07:48→11:28)
[2017-06-23] MEDS: INSULIN GLARGINE SOLOSTAR 100 UNITS/ML 3 ML PEN SC SCH (07:49)
[2017-06-23 07:52] VITALS: BP 135/82; PULSE 71; TEMP 36.8; O2SAT 94
--- NOTE | 2017-06-23 07:53 | Orthopedic Progress Note ---
Orthopedic Progress Note Date of Service Jun 23, 2017. Subjective Post OP Day: 2 Reports: feeling well, pain controlled w PO medications, Denies: complaints, chest pain, SOB, nausea / vomiting, light headedness, calf pain Objective calves soft nontender, N/V intact, hip located, capillary refill less than 2 sec., dressing C/D/I, A&O x3, toes mobile Date Time Temp Pulse Resp B/P (MAP) Pulse Ox O2 Delivery O2 Flow Rate FiO2 06/23/17 06:33 36.8 71 18 135/82 (99) 94 Room Air 06/22/17 23:00 36.7 69 16 125/76 (92) 97 CPAP 3.0 06/22/17 20:20 Room Air CPAP 06/22/17 15:37 36.7 84 18 160/88 (112) 91 Room Air 06/22/17 12:01 36.9 81 18 134/84 (101) 90 Room Air 06/22/17 10:31 95 Room Air 06/22/17 08:32 Room Air 06/22/17 07:59 36.2 60 18 124/76 (92) 95 Room Air Assessment & Plan Assessment: 61 yo male stable POD #2 s/p left JOSE ALFREDO Plan: 1. Med management 2. DVT prophylaxis- ASA, SCDs 3. PT/OT 4. D/C planning- pt interested in [place]
[2017-06-23] MEDS ORDERED: ACET-24 PO ×2 (07:57→10:45)
[2017-06-23] MEDS ORDERED: ONDA8TAB6 PO (07:57)
[2017-06-23] MEDS ORDERED: RXC5 PO (07:57)
[2017-06-23] MEDS ORDERED: CLB200 PO ×2 (07:57→10:45)
[2017-06-23] MEDS ORDERED: ASPEC81 PO ×2 (07:57→10:45)
[2017-06-23 08:09] LABS: HEMATOCRIT 34.1 % (42-52); HEMOGLOBIN 11.9 g/dL (14.0-18.0); MEAN CELL VOLUME 91.2 fL (80-100); MEAN CORPUSCULAR HEMOGLOBIN 31.8 pg (25-34); MEAN CORPUSCULAR HGB CONC 34.9 g/dl (32-36); MEAN PLATELET VOLUME 10.4 fL (7.4-10.4); PLATELET COUNT 102 K/uL (130-400); RED CELL DISTRIBUTION WIDTH SD 45.8 fL (36.4-46.3); WHITE BLOOD COUNT 21.38 K/uL (4.8-10.8)
[2017-06-23 08:35] LABS: CALCIUM 8.4 mg/dl (8.5-10.1); CREATININE 1.6 mg/dl (0.60-1.40); POTASSIUM 4.8 mmol/L (3.5-5.1)
[2017-06-23 11:32] VITALS: BP 132/80; PULSE 70; O2SAT 98
== END 2017-06-23 12:30 | DRG 470 ==
LOC: C.ACU 05:42 → C.3E 07:44 → ENRESERV 10:15
PROC: 0SR90JZ Replacement of Right Hip Joint with Synthetic Substitute, Open Approach (ICD-10-PCS; principal; 2017-06-21 08:15)
DX: M16.12 Unilateral primary osteoarthritis, left hip (principal); I25.10 Atherosclerotic heart disease of native coronary artery without angina pectoris; I25.2 Old myocardial infarction; E10.9 Type 1 diabetes mellitus without complications; K21.9 Gastro-esophageal reflux disease without esophagitis; I10 Essential (primary) hypertension; E78.5 Hyperlipidemia, unspecified; E66.9 Obesity, unspecified; Z79.82 Long term (current) use of aspirin; Z79.4 Long term (current) use of insulin